=== PATIENT | female | born 1965 | race Caucasian/White ===

== ENCOUNTER 2019-02-11 05:26 | Day surgery (SDC) | payer SELFPAY ==
[~2019-02-11] VITALS: Ht 154.9 cm; Wt 44.1 kg
[2019-02-11] MEDS ORDERED: WELLBUTRIN 100100 MG PO (06:04)
[2019-02-11] MEDS ORDERED: FLEXERIL5 MG PO (06:05)
[2019-02-11] MEDS ORDERED: XANAX .25M0.25 MG/TA PO (06:06)
[2019-02-11] MEDS ORDERED: NEURONTIN300 MG/CAP PO (06:06)
[2019-02-11] MEDS ORDERED: MULTIPLE VITAMI1 CAP PO (06:07)
[2019-02-11] MEDS ORDERED: PENNSAID 150 M150 ML TOP (06:08)
[2019-02-11] MEDS ORDERED: TYLENOL 500MG500 MG PO (06:10)
[2019-02-11] MEDS ORDERED: MOTRIN 800800 MG/TAB PO (06:10)
[2019-02-11] MEDS ORDERED: BUPRENORPHINE HC8 MG SL (06:14)
[2019-02-11] MEDS ORDERED: BLACK COHOSH40 MG PO (06:15)
[2019-02-11 06:30] VITALS: BP 130/61; PULSE 81; TEMP 98.3
[2019-02-11 08:07] VITALS: BP 111/60; PULSE 80
--- NOTE | 2019-02-11 08:07 | NUR ---
Patient returns to room 8 per cart from surgery and arouses to verbal stimuli. Left arm elevated on pillow and arm in sling. States that the left arm feels numb from the block placed pre-op. Splint and renetta wrap dressing dry and intact on the left arm. Fingers warm to touch. Temp 97.7 and room air sats 98%. Siderails up x2 and call light in reach. Friend Phill in room. IV fluids to INT. Denies nausea and is sipping on water.
[2019-02-11 08:22] VITALS: BP 115/71; PULSE 81
--- NOTE | 2019-02-11 08:22 | NUR ---
Assisted up to the bathroom and voids. Gait steady with one person assist and left arm supported on sling.
[2019-02-11 08:37] VITALS: BP 126/78; PULSE 75
--- NOTE | 2019-02-11 08:37 | NUR ---
Sitting on edge of bed eating muffin and drinking Coke. Denies nausea.
[2019-02-11] MEDS ORDERED: COLACE 100100 MG/CAP PO (08:49)
[2019-02-11] MEDS ORDERED: ZOFRAN 4MG T4 MG/TAB PO (08:49)
[2019-02-11] MEDS ORDERED: MOBIC15 MG PO (08:50)
[2019-02-11 08:52] VITALS: BP 120/76; PULSE 74
--- NOTE | 2019-02-11 08:52 | NUR ---
Talking with friend. Offers no complaints.
[2019-02-11 09:07] VITALS: BP 121/65; PULSE 72
--- NOTE | 2019-02-11 09:07 | NUR ---
INT needle discontinued and assisted with dressing. Left arm supported in sling.
--- NOTE | 2019-02-11 09:25 | NUR ---
Given dismissal instructions and voices understanding of these. All questions answered and provided scripts for Maximino Lizama, and Khadra.
--- NOTE | 2019-02-11 09:28 | NUR ---
Patient dismissed to home per private vehicle driven by friend and taken to the front door per wheelchair by RN and assisted into car with dismissal instructions in hand.
== END 2019-02-11 09:28 | disposition home or self-care (01) ==
LOC: SDCO 05:26
DX: S62.627A Displaced fracture of middle phalanx of left little finger, initial encounter for closed fracture (principal); S61.217A Laceration without foreign body of left little finger without damage to nail, initial encounter; F17.210 Nicotine dependence, cigarettes, uncomplicated; M19.90 Unspecified osteoarthritis, unspecified site; G89.29 Other chronic pain; F41.0 Panic disorder [episodic paroxysmal anxiety]; Z88.0 Allergy status to penicillin
CPT/HCPCS: J2250; J2704; J2795; J3010; J7120